=== PATIENT | female | born 1965 | race Caucasian/White ===

== ENCOUNTER 2019-04-02 15:57 | Inpatient (IN) ==
[2019-04-02 17:36] LABS: AGAP 13; ALBUMIN 3.8 g/dL (3.5-5.0); ALKALINE PHOSPHATASE 64 U/L (32-104); BUN 8 mg/dL (8-22); CALCIUM 9.4 mg/dL (8.8-10.2); CHLORIDE 101 mmol/L (98-107); COSMO 280; CREATININE 0.7 mg/dL (0.5-0.9); ESTIMATED GFR > 60; GLUCOSE 107 mg/dL (70-104); GOT 12 U/L (10-30); GPT 12 U/L (10-36); POTASSIUM 3.6 mmol/L (3.5-5.1); SODIUM 141 mmol/L (136-145); TCO2 28 mmol/L (25-35)
[2019-04-02 17:38] LABS: BASO# 0.04 X1000 (0.0-0.2); BASO% 0.5 % (0.0-0.8); EOS# 0.16 X1000 (0.0-0.7); HEMATOCRIT 37.8 % (37.0-47.0); HEMOGLOBIN 11.6 g/dL (12.0-16.0); IMM GRAN# 0.03 X1000 (0.0-0.04); IMM GRAN% 0.4 % (0.0-0.5); LYMPH# 1.65 X1000 (1.2-3.4); LYMPH% 20.6 % (20.5-51.1); MCH 25.8 PG (27-31); MCHC 30.7 g/dL (33-37); MONO# 0.74 X1000 (0.11-0.59); MONO% 9.2 % (1.7-9.3); MPV 11.8 FL (7.4-10.4); NEUT# 5.39 X1000 (1.4-6.5); NEUT% 67.3 % (42.2-75.2); PLT 303 X1000 (130-400); RDW 19.3 % (11.5-14.5); WBC 8.01 X1000 (4.8-10.8)
--- NOTE | 2019-04-02 18:10 | Diag Imaging Result Doc PS360 ---
EXAM: CHEST-2 VIEWS INDICATION: edema TECHNIQUE: 2 views COMPARISON: 06/14/2018 FINDINGS: There is suggestion of mild subsegmental atelectasis at the lung bases. The lungs are grossly clear, otherwise. There is no discrete pleural fluid collection or pneumothorax. The cardiac silhouette is mildly prominent. Central vasculature is unremarkable. IMPRESSION: Cardiomegaly and suggestion of mild bibasilar atelectasis. Electronically signed by Oscar Vigil 04/02/2019 6:07 PM
--- NOTE | 2019-04-02 19:06 | EKG Report ---
Test Performed on : 04/02/2019 4:34:56 PM Test Reason : edema Blood Pressure : / mmHG Vent. Rate : 083 BPM Atrial Rate : 083 BPM P-R Int : 144 ms QRS Dur : 078 ms QT Int : 380 ms P-R-T Axes : 010 -07 044 degrees QTc Int : 446 ms Normal sinus rhythm. Normal ECG When compared with ECG of 14-JUN-2018 12:47, Criteria for Inferior infarct are no longer present Unconfirmed Result
--- NOTE | 2019-04-02 20:50 | Diag Imaging Result Doc PS360 ---
EXAM: CT ANGIOGRM PULMONARY ARTERIES INDICATION: low sat, elevated d-dimer TECHNIQUE: This exam was performed using automated exposure control, adjustment of mA or kV according to patient size, and/or use of iterative reconstruction technique. Thin section axial images and 3-D MIPS were obtained. COMPARISON: None. FINDINGS: There are small filling defects seen in higher order branches of the right and left pulmonary arteries leading to the lower lobes bilaterally as well as the right middle lobe. This is consistent with acute pulmonary emboli. The clot burden is light. There is no evidence of heart strain. There is no evidence of aortic aneurysm or dissection. There is no cardiomegaly. There is no evidence of significant mediastinal or hilar lymphadenopathy. There are mild emphysematous changes with an apical predominance bilaterally. The lungs are clear, otherwise. There is no evidence of pulmonary infarct. There is no pleural fluid collection and no pneumothorax. Limited views of the upper abdomen are unremarkable. IMPRESSION: 1.Bilateral pulmonary emboli with a fairly light clot burden. 2.Mild pulmonary emphysema. Electronically signed by Oscar Vigil 04/02/2019 8:48 PM
[2019-04-02] MEDS ORDERED: LOVENOX 1 MG/KG SUBQ ONE (20:56)
[2019-04-02] MEDS ORDERED: MORPHINE IV PRN (21:01)
[2019-04-02] MEDS ORDERED: ZOFRAN IV PRN (21:01)
--- NOTE | 2019-04-02 21:12 | Extremity Venous Study ---
EXAM: Venous U/S Bilateral Legs INDICATION: swelling legs TECHNIQUE: COMPARISON: None. FINDINGS: There is no discrete filling defects and there is normal Doppler flow, compressibility, and augmentation involving the deep venous systems of the right and left lower extremities. The great saphenous veins also appear to be patent bilaterally. IMPRESSION: No evidence of DVT. Electronically signed by Oscar Vigil 04/02/2019 9:10 PM
[2019-04-02] MEDS ORDERED: LOVENOX ONE (21:13)
[2019-04-02] MEDS: LOVENOX SUBQ SCH (21:24)
[2019-04-02] MEDS ORDERED: XANAX PO ONE (22:05)
[2019-04-03] MEDS: LOVENOX SUBQ SCH ×2 (03:27→08:20)
[2019-04-03] MEDS ORDERED: MOTRIN PO PRN (07:08)
[2019-04-03] MEDS ORDERED: NORCO-10 PO PRN (07:08)
[2019-04-03 07:53] VITALS: BP 152/86
[2019-04-03] MEDS ORDERED: NICODERM PATCH TD PRN (08:30)
[2019-04-03] MEDS ORDERED: LYRICA PO SCH (09:00)
[2019-04-03] MEDS ORDERED: FLEXERIL PO SCH (09:00)
[2019-04-03] MEDS ORDERED: HYDROCHLOROTHIAZIDE PO SCH (09:00)
[2019-04-03] MEDS ORDERED: LOTENSIN PO SCH (09:00)
[2019-04-03] MEDS ORDERED: PNEUMOVAX 23 IM ONE (10:30)
[2019-04-03] MEDS ORDERED: GEODON PO SCH (17:30)
--- NOTE | 2019-04-03 18:42 | HISTORY AND PHYSICAL ---
CHIEF COMPLAINT: Back pain. HISTORY OF PRESENT ILLNESS: The patient is a 53-year-old, extremely noncompliant individual who states that she has been having back pain for approximately a month. Oddly enough, she has not been to the office during the past month with any complaints of back pain or leg pain. She states the leg pain and back pain finally became so severe that she went to the ER. Upon initial workup, she was noted to have elevated D-dimer, negative ultrasound of the lower extremities but did have positive pulmonary emboli bilaterally on a CT scan. Oddly enough, the patient appears more concerned about her month long back pain and getting it treated than she does the severity of her pulmonary emboli. PAST MEDICAL HISTORY: Chronic tobacco abuse, bipolar, chronic pain, intervertebral disk disease, which is likely the cause of her current back pain, hypertension, obesity. SOCIAL HISTORY: Patient is . Smokes at least a pack a day. Denies illicit substance use. REVIEW OF SYSTEMS: As noted above, notes that she has back pain, leg pain, hurts worse when she attempts to walk or ambulate. She denies any fevers, chills, dysuria, frequency, urgency, hesitancy. Denies any shortness of breath, but notes that she has not really been ambulating lately. Denies chest pain, palpitations. Denies fevers, chills, headaches, blurred vision, change in vision. Denies any focalized weakness or numbness in her extremities. Denies constipation, melena, hematochezia, or dysuria. PHYSICAL EXAMINATION: VITAL SIGNS: Reviewed. She is afebrile, O2 saturation 94% on room air. GENERAL: The patient is a morbidly obese female who is currently in no respiratory distress. HEENT: Normocephalic. NECK: Supple. CARDIOVASCULAR: Regular rate. CHEST: Clear but decreased breath sounds bilaterally equal. ABDOMEN: Soft, obese, nondistended. EXTREMITIES: Moves all extremities. She has no focal weakness. ASSESSMENT: 1. Bilateral pulmonary emboli. 2. Chronic tobacco abuse in a patient with already known history of emphysema. 3. Chronic emphysema. 4. Chronic pain. 5. Intervertebral disk disease, which is likely the cause of her current back pain as well. PLAN: Discussed with patient that she will not actually have any type of outpatient workup for her chronic back pain while she is in the hospital as this would be an outpatient diagnosis and needs to be worked up as an outpatient setting. I did discuss with her the importance of treating her pulmonary emboli. Discussed the importance of ambulation. Oddly enough, she became quite irate stating that her back pain was extremely severe and that she would rather blow her brains out than continue with back pain. At that point I discussed with her that if she is truly being serious, we need to put her in the ICU, consult Lele Helms that at no point is that a joke, and if she is serious, that is a very serious accusation and needs to be taken seriously. Her notes that she is not serious. She states that she has no desire to hurt herself. We are going to admit her to the hospital, place her on Lovenox and gave her a prescription for Xarelto if it is affordable. She certainly can discharge home and follow up outpatient to work up her back pain. cc: Zeus Hayes MD
[2019-04-03] MEDS ORDERED: ZOCOR PO SCH (21:00)
[2019-04-04] MEDS ORDERED: PRILOSEC PO SCH (07:00)
--- NOTE | 2019-04-05 02:03 | DISCHARGE SUMMARY ---
ADMISSION DATE: 04/02/2019 DISCHARGE DATE: 04/03/2019 DISCHARGE DIAGNOSES: 1. Pulmonary emboli. 2. Medical noncompliance. 3. Back pain. CONSULTATIONS: None. PROCEDURES: None. BRIEF HOSPITAL COURSE: The patient presented to the hospital with back pain, subsequently diagnosed with pulmonary emboli. Thankfully, she had an uneventful hospital course. Her insurance approved Xarelto, and she will be discharged home. DISPOSITION: The patient will be discharged home. She is instructed to follow up outpatient in the office so we can further evaluate and treat her back pain. She will continue Xarelto for her pulmonary emboli. cc: Zeus Hayes MD
--- NOTE | 2019-04-15 18:39 | PROVIDER DOCUMENTATION ---
This chart was entered by Triston Mckeon Scribe, acting as scribe for Jb Montgomery MD. HPI-Musculoskeletal Pain/Inj <Orlando Hwang - Last Filed: 04/02/19 21:01> - GENERAL Source: patient - HX OF PRESENT ILLNESS-MUSKULOSKELTAL Quality of Pain: reports: aching Severity in ED: mild Onset/Duration: other (longer than 2 weeks) Timing: still present Modifying Factors: worse with: movement Any recent injury?: No Locality of Occurance: Home Similar Symptoms Previously?: No Recently seen or treated by another doctor?: No - LOWER EXTREMITY PAIN/INJURY Lower Extremities Pain: leg: left, foot: left Context / Method of Injury: reports: unknown Associated Symptoms: reports: denies symptoms <Jb Montgomery - Last Filed: 04/15/19 18:38> - GENERAL Chief Complaint: Edema Stated Complaint: LEG PAIN Time Seen by Provider: 04/02/19 17:00 - HX OF PRESENT ILLNESS-MUSKULOSKELTAL Nature of Presenting Problem: 53 yof presents to the ed with c/o bilateral leg pain. pt states "severe pain with swelling going off and on." pt states "hurting so bad cant stand it.' pt states onset problem has been going on for longer than 2 weeks. pt states shortness of breath when walking a long distance or generalized walking. (Jb Montgomery) Review of Systems - Adult - REVIEW OF SYSTEMS - ADULT Constitutional: reports: no symptoms reported Eyes: reports: no symptoms reported Ears, Nose, Mouth & Throat: reports: no symptoms reported Cardiovascular: reports: no symptoms reported Respiratory: reports: see HPI, shortness of breath (when walking). denies: cough, wheezing Gastrointestinal: reports: no symptoms reported Genitourinary: reports: no symptoms reported Musculoskeletal: reports: no symptoms reported Integumentary: reports: no symptoms reported Neurological: reports: no symptoms reported Psychiatric: reports: no symptoms reported Endocrine: reports: no symptoms reported Hematologic/Lymphatic: reports: no symptoms reported Allergic/Immunologic: reports: no symptoms reported All Other Systems: Reviewed and Negative <Jb Montgomery - Last Filed: 04/15/19 18:38> Past History - Adult - PAST MEDICAL HISTORY-ADULT Review of Records: reports: Old Records Reviewed, Nursing Assessment Review, M edications Reviewed, Social history reviewed & non-contributory. Major Childhood Illnesses: reports: denies history Cardiovascular: reports: HTN Respiratory: reports: denies history Gastrointestinal: reports: denies history Obstetrical/Gynecological: reports: denies history Genitourinary: reports: denies history Musculoskeletal: reports: intervertebral disc disease, chronic pain Neurological: reports: denies history Psychiatric: reports: bipolar Endocrine/Immune: reports: denies history Other Conditions: reports: denies history - PRIOR SURGERIES/PROCEDURES Surgical/Procedure History: reports: reviewed, not pertinent - IMMUNIZATION STATUS Childhood Immunizations: See Nurse Assessment Flu Vaccine: See Nurse Assessment - FAMILY HISTORY Family History: reviewed, not pertinent - SOCIAL HISTORY Smoking: cigarettes, greater than 1 pack/day Provider spent 3-5 mins advising pt. on dangers of tobacco.: Discussed manners to quit use, and f/u contacts for add'l counseling. Living Situation: alone <Jb Montgomery - Last Filed: 04/15/19 18:38> Physical Exam-Injury Related - Physical Exam-Injury Related Initial Vital Signs Reviewed: Yes General Appearance: appears well, alert, mild distress, obese. negative: lethargic, slow to respond Eyes: PERRL/EOMI Head, Ears, Nose, Mouth & Throat: moist mucous membranes Neck: non-tender, full range of motion Respiratory: chest non-tender, lungs clear, normal breath sounds Cardiovascular: tachycardia (102) Chest/Breast: deferred Abdominal Exam: normal bowel sounds, non tender, soft Female Genitalia/Pelvic Exam: deferred Rectal Exam: deferred Hemoccult Exam: deferred Back Exam: no CVA tenderness Extremity: normal range of motion, non-tender, normal gait Integumentary: normal color, warm/dry Neurologic: grossly normal Psych/Mental Status: normal mood/affect, normal thought content, normal thought process, oriented x 3 - Glascow Coma Score Best Eye Response (Angela): (4) open spontaneously Best Verbal Response (Angela): (5) oriented Best Motor Response (Angela): (6) obeys commands Elsa Total: 15 <Jb Montgomery - Last Filed: 04/15/19 18:38> Progress - PLAN OF CARE/RESULTS Result Diagrams: 04/02/19 16:50 04/02/19 16:50 - ULTRASOUND (By Radiology) 1 US Study: Lower Ext US Results: no DVT - CONSULTS/PCP/HOSPITALIST Notification #1 *Consult/PCP/Hospitalist*: Dr. Hayes Time Discussed: 21:00 Consult Disposition: Admit <Orlando Hwang - Last Filed: 04/02/19 21:01> - PLAN OF CARE/RESULTS Result Diagrams: 04/02/19 16:50 04/02/19 16:50 - EKG 1 Time of EKG reading by physician:: 16:34 EKG Read and Signed by:: Jb Montgomery EKG Interpretation (*Must complete 3 of following elements*): Normal Rate: 83 Rhythm: NSR Cash: normal QRS: normal NC Interval: normal ST Wave: normal <Jb Montgomery - Last Filed: 04/15/19 18:38> - PLAN OF CARE/RESULTS Progress/Plan/Lab Results: Orders Category Date Time Status Admit - [facility] Routine AdmDCTranf 04/02/19 21:01 Active Activity - Strict Bedrest ORDERED Care 04/02/19 21:01 Active Resuscitation Status Routine Care 04/02/19 21:01 Completed Saline Loc DIRECTED Care 04/02/19 16:22 Completed Vital Signs Order Q 4-HR ASSESS Care 04/02/19 21:01 Active Z-Document. for Tele Applied ORDERED Care 04/02/19 21:04 Completed Heart Healthy Diet Diet 04/02/19 21:03 Completed CHEST-2 VIEWS [RAD] Stat Exams 04/02/19 16:21 Completed CTA [CT ANGIOGRM PULMONARY ARTERIES] [CT] Stat Exams 04/02/19 18:50 Completed CBC WITH DIFF [HEME] Stat Lab 04/02/19 16:50 Completed CK PROFILE [SP CHEM] Stat Lab 04/02/19 16:50 Completed COMPREHENSIVE METABOLIC PANEL [CHEM] Stat Lab 04/02/19 16:50 Completed D-DIMER [COAG] Stat Lab 04/02/19 16:50 Completed TROPONIN T Stat Lab 04/02/19 16:50 Completed bnp [PRO B-NATRIURETIC PEPTIDE] Stat Lab 04/02/19 16:50 Completed Enoxaparin [Lovenox] Med 04/02/19 21:13 Discontinued 100 mg .ROUTE .STK-MED ONE Enoxaparin [Lovenox] Med 04/02/19 21:15 Discontinued 110 mg SUBQ Q12H Morphine Med 04/02/19 21:01 Discontinued 2 mg IV Q2H PRN PRN Ondansetron [Zofran] Med 04/02/19 21:01 Discontinued 4 mg IV Q4H PRN PRN Oxygen Device Routine Oth 04/02/19 21:02 Completed Telemetry [OM.EQ] Routine Oth 04/02/19 21:01 Active EKG [EKG] Stat Ther 04/02/19 16:21 Draft Venous U/S Bilateral Legs Stat Ther 04/02/19 17:32 Completed Transfer/Admit Order [TRANSFER] Routine Transfer 04/02/19 21:05 Completed Departure - Departure Certified Medical Emergency: Emergent <Orlando Hwang - Last Filed: 04/02/19 21:01> - Departure Date of Disposition Decision: 04/02/19 Time of Disposition Decision: 17:00 Certified Medical Emergency: Emergent - Critical Care Note This patient required my direct & personal management of CC.: No <Jb Montgomery - Last Filed: 04/15/19 18:38> - Departure DIAGNOSIS: Tobacco abuse disorder, Pulmonary embolism, bilateral Disposition: ADMITTED INPATIENT 09 Condition: Stable Attestation - Physician/ BERTA Attestation Patient care was provided by Advanced Practice Provider:: No The physician spent face to face time with patient:: Yes Advanced Practice Provider documentation review:: Supervising physician onsite and consulted in the evaluation and care of this patient. The physician did have a face to face encounter with the patient. <Jb Montgomery - Last Filed: 04/15/19 18:38> This chart was documented by the indicated scribe, (Triston Mckeon Scribe) and accurately reflects the services I performed and decisions made by me, Jb Montgomery MD, as attested by the provider's signature.
== END 2019-04-03 11:25 | disposition home or self-care (01) | DRG 176 ==
LOC: P.ED 15:57 → P.MEDSURG 21:56
PROVIDERS: ADMIT Family Medicine; ATTEND Family Medicine